=== PATIENT | female | born 1970 | race Two or more races ===

== ENCOUNTER 2025-09-23 09:45 | Emergency (ER) | payer OTHER, SELFPAY ==
[2025-09-23 09:52] VITALS: BP 183/93; PULSE 62; RESP 18; TEMP 36.7; O2SAT 96; BMI 29.8
--- NOTE | 2025-09-23 10:08 | EDNOTE_ITS ---
ED General RME/HPI General Chief complaint: General Adult/Misc Complain Stated complaint: HEAD PRESSURE, HIGH BP Time Seen by Provider: 09/23/25 09:51 Arrival date/time: 09/23/25 09:45 Limitations: no limitations RME / HPI RME / HPI narrative: 54yo female brought in by daughter for persistent fatigue and headache. went to [facility] [place] 2 days ago and started on clonidine. Currently on losartan 100mg daily, amlodipine 5once a day and now clonidine 0.1. States she she does not have a headache with blood pressure or anything else. Denies nasal congestion fever cough runny nose or sore throat no nausea vomiting or diarrhea. Related Data Home Medications ?Medication ?Instructions ?Recorded ?Confirmed antihypertensive ##0 06/19/17 Previous Rx's ?Medication ?Instructions ?Recorded nitrofurantoin 100 mg PO Q12H 7 days #14 ca ps 09/23/25 monohydrate/macrocrystals 100 mg capsule (Macrobid) Allergies Allergy/AdvReac Type Severity Reaction Status Date / Time No Known Allergies Allergy Verified 07/18/24 17:26 Review of Systems Review of Systems Systems Reviewed: All systems reviewed, normal except as documented Constitutional Constitutional: Reports as per HPI ED Exam General Limitations: Present no limitations General appearance: Present alert and in no apparent distress Head Head exam: Present atraumatic Eye Eye exam: Present normal appearance, PERRL and EOMI ENT ENT exam: Present normal exam, normal oropharynx and mucous membranes moist Neck Neck exam: Present normal inspection, full ROM and trachea midline Chest Chest inspection: Present normal inspection and symmetric chest wall rise Respiratory Respiratory exam: Present normal lung sounds bilaterally Cardiovascular Cardiovascular exam: Present regular rate, normal rhythm and normal heart sounds Abdominal Exam Abdominal exam: Present soft and normal bowel sounds Extremities Exam Extremities exam: Present normal inspection and full ROM Back Exam Back exam: Present normal inspection and full ROM Neurological Exam Neurological exam: Present alert, oriented X3 and CN II-XII intact Psychiatric Psychiatric exam: Present normal affect and normal mood Skin Skin exam: Present warm, dry, intact and normal color Course Quality Measures none Orders Category Date Time Status CT head/brain wo con Stat Exams 09/23/25 10:08 Completed CBC Stat Lab 09/23/25 10:50 Completed CMP [Comprehensive Metabolic Panel] Stat Lab 09/23/25 10:50 Completed UA [Urinalysis] Stat Lab 09/23/25 10:25 Completed ALPRazoLAM [Xanax] Med 09/23/25 10:08 Discontinued 1 mg PO X1 ONE Ketorolac Inj [Toradol Inj] Med 09/23/25 10:08 Discontinued 30 mg IM X1 ONE cefTRIAXone [Rocephin] 1,000 mg Med 09/23/25 13:07 Discontinued Lidocaine 1% Pf Vial 5ml [Xylocaine 1% 5 ml] 2.1 ml IM X1 Vital Signs Vital signs: Vital Signs Temperature 98.1 F 09/23/25 09:52 Pulse Rate 62 09/23/25 09:52 Respiratory Rate 18 09/23/25 09:52 Blood Pressure 183/93 H 09/23/25 09:52 Pulse Oximetry (%) 96 09/23/25 09:52 Oxygen Delivery Method Room Air 09/23/25 09:52 Discharge Plan Plan Patient Disposition: HOME (Self Care) Discharge Disposition comment: f/u in 2-3days Prescriptions/Referrals Prescriptions/Med Rec: New nitrofurantoin monohyd/m-cryst [Macrobid] 100 mg capsule 100 mg PO Q12H 7 Days Qty: 14 0RF Rx Instructions: must administer with a meal/food No Action antihypertensive Qty: 0 Referrals: Nisha Montana PA-C [Primary Care Provider, Family Practice] - In 1 week Problem List Clinical Impression: HTN (hypertension), Headache, UTI (urinary tract infection) Patient/Caregiver Discharge Instructions Education Materials: Blood Pressure Check Steps, ED High Blood Pressure ..., ED CYSTITIS Female Adult Print Language: Brazilian Stand Alone Forms: Myrna Award Info., Patient Portal Info Letter PA/BRASS SORTER Supervising Physician PA/BRASS SORTER Supervising Physician: Dr. Schreiber [facility] Clinical Information Provided by: patient and family Medical Records reviewed [facility] Meds/Rx considered, not ordered describe: Considered addition of beta-chanda to blood pressure regimen however should follow-up with PCP Labs/Rad/Tests considered, not ordered Describe: All imaging considered was ordered Considered influenza and COVID however no upper respiratory symptoms Labs Lab(s) Interpretation(s): CBC, CMP within normal limits UA did suggest a UTI Imaging Imaging Interpretation(s): CT of brain within normal limits Medication Administration(s) Medication Administration History Discontinued Medications Alprazolam (Alprazolam 0.25 Mg Tablet) 1 mg PO X1 ONE Stop: 09/23/25 10:09 Last Admin: 09/23/25 10:15 Dose: 1 mg Documented By: MICHAEL Ceftriaxone Sodium 1,000 mg/ (Lidocaine HCl 2.1 ml) 0 mg IM X1 ONE Stop: 09/23/25 13:08 Last Admin: 09/23/25 13:35 Dose: 1,000 mg Documented By: MICHAEL Ketorolac Tromethamine (Ketorolac Inj 30 Mg/Ml Vial) 30 mg IM X1 ONE Stop: 09/23/25 10:09 Last Admin: 09/23/25 10:16 Dose: 30 mg Documented By: MICHAEL see above
--- NOTE | 2025-09-23 10:08 | XR_ITS ---
Examination: CT brain head without contrast. 2-D sagittal coronal reconstructions Date and time of exam: September 23, 2025, 1125 hours INDICATIONS: Dizziness hypertension today CTDI: vol (mGy): 49.2 DLP: (mGycm): 908 Technique: Multiple CT axial sections of the brain have been obtained, 5 mm slice thickness. Contrast has not been administered. 2-D sagittal, coronal reconstructions have been obtained Low dose protocols were performed. One or more of the following dose reduction techniques were used; automated exposure control, adjustment of the mA and/or KV according to patient size, use of iterative reconstruction technique. Findings: No significant ventricular enlargement. Intra-axial or extra-axial hemorrhage density is not seen. No mass effect or midline shift Basal cisterns are not remarkable. Fourth ventricle is midline. Cranial vault intact. Impression: Negative for acute hemorrhage, mass effect or midline shift
[2025-09-23] MEDS: KETOROLAC INJ 30 MG/ML VIAL IM (10:16)
[2025-09-23 10:27] LABS: Collection Type, Urine Clean Catch
[2025-09-23 10:37] LABS: Bilirubin,Urine Negative (Negative); Blood,Urine 1+ (Negative); Clarity,Urine Turbid (Clear/Hazy); Color,Urine Yellow (Lt Yel-Yel); Glucose, Urine Negative (Negative); Ketones,Urine Negative (Negative); Leukocyte Esterase,Urine Positive (Negative); Nitrite,Urine Negative (Negative); PH,Urine 5.5 (5.0-7.0); Protein,Urine Negative (Neg - Trace); RBC,Urine 8 /hpf (0-3); Specific Gravity,Urine 1.023 (1.001-1.035); Squamous Epithelial Cell,Urine 10 /hpf (0-5); Urobilinogen,Urine Negative mg/dL (0.0-1.0); WBC,Urine 27 /hpf (0-5)
[2025-09-23 11:05] LABS: Basophils # (Auto) 0.0 Thou/mm3 (0.0-0.2); Basophils % (Auto) 0 % (0-2.5); Eosinophils # (Auto) 0.1 Thou/mm3 (0.0-0.5); Eosinophils % (Auto) 1 % (0-10); Hematocrit 40.4 % (36.0-46.0); Hemoglobin 13.2 g/dL (12.0-16.0); Immature Granulocytes Auto 0.01 Thou/mm3 (0.00-0.00); Lymphocytes # (Auto) 2.6 Thou/mm3 (1.0-4.8); Lymphocytes % (Auto) 36 % (10-50); Mean Corpuscular HGB Conc 32.7 g/dl (31.0-37.0); Mean Corpuscular Hemoglobin 28.8 pg (25.0-35.0); Mean Corpuscular Volume 88 fL (80-100); Monocytes # (Auto) 0.5 Thou/mm3 (0.0-0.8); Monocytes % (Auto) 7 % (0-12); Neutrophils # (Auto) 4.2 Thou/mm3 (1.8-7.7); Neutrophils % (Auto) 57 % (37-80); Nucleated Red Blood Cell # 0.00 Thou/mm3 (0.00-0.00); Nucleated Red Blood Cell % 0 /100 WBC (0); Platelet Count 318 Thou/mm3 (140-440); RDW Standard Deviation 41.9 fL (36.4-46.3); Red Blood Count 4.58 Miln/mm3 (4.00-5.20); White Blood Count 7.4 Thou/mm3 (3.6-11.0)
[2025-09-23 11:28] LABS: Alanine Aminotransferase 11 U/L (10-49); Albumin, Serum 4.3 gm/dL (3.5-5.0); Albumin/Globulin Ratio 1.5 (1.2-2.2); Alkaline Phosphatase 67 U/L (46-116); Anion Gap 8 (7-16); Aspartate Amino Transferase 13 U/L (0-34); BUN/Creatinine Ratio 13 Ratio (12-20); Bilirubin,Total 0.5 mg/dL (0.3-1.2); Blood Urea Nitrogen 13 mg/dL (9-23); Calcium 8.8 mg/dL (8.3-10.6); Calcium (Corrected) 8.8 mg/dL (8.5-10.1); Carbon Dioxide 29.3 mMol/L (20.0-31.0); Chloride 105 mMol/L (98-107); Creatinine (Component) 1.0 mg/dL (0.6-1.3); Estimated Creatinine Clearance 73.5 mL/min (>60); Globulin 2.9 gm/dL (2.3-3.5); Glucose 94 mg/dL (74-106); Osmolality,Calculated 283 (275-295); Potassium 4.3 mMol/L (3.4-5.1); Sodium 142 mMol/L (136-145); Total Protein 7.2 gm/dL (5.7-8.2); eGFR > 60 See Note
[2025-09-23 13:20] VITALS: BP 111/73; PULSE 58; RESP 16; TEMP 36.4; O2SAT 97
== END 2025-09-23 13:39 | disposition home or self-care (01) ==
PROVIDERS: Physician Assistant; Emergency Provider Emergency Medicine; PCP Physician Assistant
DX: I10 Essential (primary) hypertension (principal); N39.0 Urinary tract infection, site not specified; R51.9 Headache, unspecified; R42 Dizziness and giddiness
CPT/HCPCS: 36415; 70450; 80053; 81001; 85025; 96372; 99283; J0696; J1885; J3490; A9270